=== PATIENT | male | born 1985 | race Caucasian/White ===

== ENCOUNTER 2019-11-10 15:40 | Emergency (ER) | payer OTHER, SELFPAY ==
[~2019-11-10] VITALS: Ht 175.3 cm; Wt 77.1 kg
[2019-11-10] MEDS ORDERED: ACETAMINOPHEN ES 500 MG TABLET PO ONE (16:00)
[2019-11-10] MEDS ORDERED: IV NS 0.9% 1,000 ML BAG IV ONE ×2 (16:00→17:30)
--- NOTE | 2019-11-10 16:00 | NUR ---
[place], from [place], c/o diarrhea x 2 days, fever 101.5 temp, no sob. On room air, breathing evenly and unlabored. connected to the monitor and pulse ox. kept comfortable, will continue to monitor accordingly.
[2019-11-10] MEDS ORDERED: ACETAMINOPHEN ES 500 MG TABLET ONE (16:05)
[2019-11-10 16:39] LABS: BASOPHILS % (AUTO) 0.2 % (0.0-2.0); HEMATOCRIT 50 % (39-51); HEMOGLOBIN 16.8 g/dL (13.5-17.5); LYMPHOCYTES # (AUTO) 0.8 /CMM (0.8-4.8); LYMPHOCYTES % (AUTO) 8.9 % (20.0-44.0); MEAN CORPUSCULAR HGB CONC 34 g/dl (31.0-36.0); MEAN CORPUSCULAR VOLUME 83 fL (80-96); MONOCYTES # (AUTO) 0.7 /CMM (0.1-1.30); MONOCYTES % (AUTO) 7.4 % (2.0-12.0); NEUTROPHILS # (AUTO) 7.4 /CMM (1.8-8.9); NEUTROPHILS % (AUTO) 83.5 % (43.0-81.0); PLATELET COUNT (AUTO) 134 /CMM (150-450); RED BLOOD CELL COUNT(AUTO) 5.97 MIL/uL (4.5-6.0); WHITE BLOOD COUNT (AUTO) 8.8 K/uL (4.3-11.0)
[2019-11-10 16:58] LABS: CALCIUM, SERUM 8.4 mg/dL (8.5-10.1); CARBON DIOXIDE 25 mmol/L (21-32); CHLORIDE 93 mmol/L (98-107); CREATININE 1.2 mg/dL (0.6-1.3); GLUCOSE 122 mg/dL (74-106); POTASSIUM 3.6 mmol/L (3.5-5.1); SODIUM SERUM 128 mmol/L (136-145); UREA NITROGEN, BLOOD 14 mg/dL (7-18)
[2019-11-10 17:03] LABS: ALANINE AMINOTRANSFERASE 16 U/L (12-78); ALBUMIN 3.6 g/dL (3.4-5.0); ALKALINE PHOSPHATASE 50 U/L (46-116); ASPARTATE AMINOTRANSFERASE 20 U/L (15-37); BILIRUBIN,DIRECT 0.3 mg/dL (0.0-0.2); BILIRUBIN,TOTAL 1.3 mg/dL (0.2-1.0); LIPASE 31 U/L (73-393)
[2019-11-10] MEDS ORDERED: IOHEXOL-300 100 ML VIAL IV ONE (17:37)
[2019-11-10] MEDS ORDERED: IV NS 0.9% 250 ML IV ONE (17:37)
--- NOTE | 2019-11-10 17:42 | NUR ---
wheeled patient to ct
--- NOTE | 2019-11-10 17:47 | NUR ---
patient came back from ct
--- NOTE | 2019-11-10 19:30 | NUR ---
IV removed. Catheter intact and site benign. Pressure and 4x4 applied to site. No bleeding noted.
--- NOTE | 2019-11-10 19:34 | NUR ---
Patient discharged to home in stable condition. Written and verbal after care instructions given. Patient verbalizes understanding of instruction. Pt refused to sign homeless discharge papers. Provided withfood and clothes.
[2019-11-10 19:36] VITALS: BP 128/79
== END 2019-11-10 19:36 | disposition home or self-care (01) ==
LOC: ER 15:41
DX: R19.7 Diarrhea, unspecified (principal); E86.0 Dehydration; E87.1 Hypo-osmolality and hyponatremia; E87.8 Other disorders of electrolyte and fluid balance, not elsewhere classified; Z82.49 Family history of ischemic heart disease and other diseases of the circulatory system; Z20.828 Contact with and (suspected) exposure to other viral communicable diseases; Z59.0 Homelessness
CPT/HCPCS: 36415; 71045; 74177; 80048; 80076; 83605; 83690; 85025; 87040 ×2; 96360; 96361; 99285; C9803; J7030 ×2; J7050; Q9967; U0003

== ENCOUNTER 2019-12-12 10:19 | Emergency (ER) | payer MEDICAID ==
[~2019-12-12] VITALS: Ht 180.3 cm; Wt 68.0 kg
[2019-12-12 10:20] VITALS: BP 140/86
--- NOTE | 2019-12-12 10:26 | NUR ---
SEEN AND EXAMINED BY .
--- NOTE | 2019-12-12 10:37 | NUR ---
PT IS WHEELED TO CT SCAN VIA [facility].
--- NOTE | 2019-12-12 11:37 | NUR ---
Fern chandler alert verbalyy abusive to staff ,patient result test patient refused to sign the DC home instruction ,verbally yelling fuck you X 6 called security .
--- NOTE | 2019-12-12 11:40 | NUR ---
Patient given written and verbal discharge instructions. Patient verbalizes understanding of instructions. Patient is ambulatory with steady gait. Refuses offer of [facility] placement. Patient given list of available shelters in surrounding area.
[2019-12-13] MEDS ORDERED: NALOXONE HCL 0.4 MG/ML AMPUL ONE (07:39)
[2019-12-13] MEDS ORDERED: NALOXONE PREFILLED SYRINGE 2 MG/2 ML SYRINGE ONE (07:40)
== END 2019-12-12 11:44 | disposition home or self-care (01) ==
LOC: ER 10:21
DX: R51 Headache (principal); Z59.0 Homelessness
CPT/HCPCS: 70450-TC; J2310